=== PATIENT | male | born 1965 | race Hispanic/Latino ===

== ENCOUNTER 2018-12-13 20:57 | Emergency (ER) | payer MEDICAID ==
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
[2018-12-14] MEDS ORDERED: PERCOCET 5/325 PO ONE (03:10)
[2018-12-14] MEDS ORDERED: IBUPROFEN PO ONE (03:10)
[2018-12-14] MEDS ORDERED: ZOFRAN ODT PO ONE (03:10)
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
[2018-12-14 04:42] VITALS: BP 135/66
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
== END 2018-12-14 05:25 | disposition home or self-care (01) ==
LOC: ED 20:57
DX: S83.92XA Sprain of unspecified site of left knee, initial encounter (principal); S53.402A Unspecified sprain of left elbow, initial encounter; S00.83XA Contusion of other part of head, initial encounter; M54.2 Cervicalgia; R07.89 Other chest pain; I10 Essential (primary) hypertension; K21.9 Gastro-esophageal reflux disease without esophagitis; G47.30 Sleep apnea, unspecified; F17.200 Nicotine dependence, unspecified, uncomplicated; Z98.890 Other specified postprocedural states; Z79.899 Other long term (current) drug therapy; V49.49XA Driver injured in collision with other motor vehicles in traffic accident, initial encounter; Y93.89 Activity, other specified; Y92.410 Unspecified street and highway as the place of occurrence of the external cause; Y99.8 Other external cause status
CPT/HCPCS: 70450; 70486; 71046; 72125; Q0162